=== PATIENT | female | born 1930 | race Caucasian/White ===

== ENCOUNTER 2017-04-17 17:00 | Inpatient (IN) | payer OTHER ==
[~2017-04-17] VITALS: Ht 157.5 cm; Wt 63.5 kg
[2017-04-17] MEDS ORDERED: IV NORMAL SALINE 500 ML BAG IV ONE (17:30)
[2017-04-17] MEDS ORDERED: IPRATROPIUM BROMIDE 0.5 MG/2.5 ML NEBU NEB ONE (17:30)
[2017-04-17] MEDS ORDERED: ALBUTEROL SULFATE 2.5 MG/ 0.5 ML NEBU NEB ONE (17:30)
[2017-04-17] MEDS ORDERED: HYDROCORTISONE SOD SUCCINATE 100 MG/2 ML VIAL IV ONE ×2 (17:30→18:15)
[2017-04-17 17:54] LABS: ABG BASE EXCESS 0.5 mmol/L; ABG HCO3 21.8 mmol/L; ABG PCO2 25.6 mmHg (35.0-45.0); ABG PH 7.548 (7.350-7.450); ABG PO2 128.4 mmHg (75.0-100.0); ABG SITE LEFT RADIAL; ABG TOTAL HEMOGLOBIN 11.9 G/dL (12.0-16.0); COHb 1.7 % (0.5-1.5); MetHb 0.2 % (0.0-1.5); O2Hb 97.5 % (94.0-97.0); VENT MODE RA
[2017-04-17] MEDS ORDERED: ASPI81TA31 PO (17:59)
[2017-04-17] MEDS ORDERED: MULT1TAB11 PO (17:59)
[2017-04-17] MEDS ORDERED: CALC-494 PO (17:59)
[2017-04-17] MEDS ORDERED: SENN-167 PO (17:59)
[2017-04-17] MEDS ORDERED: METO100T3 PO (17:59)
[2017-04-17] MEDS ORDERED: TRAM50TA2 PO (17:59)
[2017-04-17] MEDS ORDERED: AMIN30LI27 PO (17:59)
[2017-04-17] MEDS ORDERED: HYDR-3326 PO (17:59)
[2017-04-17] MEDS ORDERED: AMLO10TA2 PO (17:59)
[2017-04-17] MEDS ORDERED: DOCU250C14 PO (17:59)
[2017-04-17] MEDS ORDERED: SACC250C PO (17:59)
[2017-04-17] MEDS ORDERED: ACET325T53 PO (17:59)
[2017-04-17] MEDS ORDERED: CRAN425C6 PO (17:59)
[2017-04-17] MEDS ORDERED: HYDR100T27 PO (17:59)
[2017-04-17 18:12] LABS: BASOPHILS # (AUTO) 0.1 K/uL (0.0-8.0); BASOPHILS % (AUTO) 0.7 % (0.0-2.0); EOSINOPHILS # (AUTO) 0.3 K/uL (0.0-0.7); EOSINOPHILS % (AUTO) 2.3 % (0.0-7.0); HEMATOCRIT 34.5 % (31.2-41.9); HEMOGLOBIN 10.9 g/dL (10.9-14.3); LYMPHOCYTES # (AUTO) 3.3 K/uL (20.0-40.0); LYMPHOCYTES % (AUTO) 29.4 % (20.5-51.5); MEAN CORPUSCULAR HEMOGLOBIN 23.6 uug (24.7-32.8); MEAN CORPUSCULAR HGB CONC 32 g/dL (32.3-35.6); MEAN CORPUSCULAR VOLUME 74.7 fL (75.5-95.3); MONOCYTES # (AUTO) 0.9 K/uL (2.0-10.0); MONOCYTES % (AUTO) 7.7 % (0.0-11.0); NEUTROPHILS # (AUTO) 6.6 K/uL (1.8-8.9); NEUTROPHILS % (AUTO) 59.9 % (38.5-71.5); PLATELET COUNT (AUTO) 323 K/uL (179-408); RED BLOOD CELL COUNT(AUTO) 4.62 MIL/uL (3.63-4.92); WHITE BLOOD COUNT (AUTO) 11.1 K/uL (3.8-11.8)
[2017-04-17] MEDS ORDERED: IPRATROPIUM BROMIDE 0.5 MG/2.5 ML NEBU ONE (18:14)
[2017-04-17] MEDS ORDERED: ALBUTEROL SULFATE 2.5 MG/ 0.5 ML NEBU ONE (18:14)
[2017-04-17 18:18] LABS: CARBON DIOXIDE 27 mmol/L (21-32); CHLORIDE 102 mmol/L (98-107); CREATININE 1.8 mg/dL (0.6-1.3); GLUCOSE 109 mg/dL (74-106); POTASSIUM 4.6 mmol/L (3.5-5.1); UREA NITROGEN, BLOOD 39 mg/dL (7-18)
[2017-04-17 18:23] LABS: ALANINE AMINOTRANSFERASE 8 U/L (14-59); ALKALINE PHOSPHATASE 58 U/L (50-136); ASPARTATE AMINOTRANSFERASE 10 U/L (15-37); BILIRUBIN,TOTAL 0.3 mg/dL (0.2-1.0); TOTAL PROTEIN, SERUM 7.4 g/dL (6.4-8.2)
[2017-04-17 19:49] LABS: EOSINOPHILS % (MANUAL) 2 % (0-8); LYMPHOCYTES % (MANUAL) 32 % (20-40); MONOCYTES % (MANUAL) 8 % (2-10); NEUTROPHILS % (MANUAL) 58 % (42-75)
[2017-04-17 20:30] VITALS: BP 156/63
[2017-04-17] MEDS ORDERED: HYDROCODONE/APAP 5-325MG TABLET PO PRN (22:00)
[2017-04-17] MEDS ORDERED: ACETAMINOPHEN 325 MG TABLET PO PRN (22:00)
[2017-04-17] MEDS ORDERED: Z GUARD REMEDY PASTE 57 GM TUBE TOP PRN (22:00)
[2017-04-17] MEDS ORDERED: MAGNESIUM HYDROXIDE 30 ML LIQUID UDC PO PRN (22:00)
[2017-04-17] MEDS ORDERED: TRAMADOL HCL 50 MG TABLET PO PRN (22:00)
[2017-04-17] MEDS ORDERED: ONDANSETRON 4 MG/2 ML VIAL IV PRN (22:00)
[2017-04-17] MEDS ORDERED: ALBUTEROL SULFATE 1.25 MG/3 ML NEBU NEB PRN (22:00)
[2017-04-17] MEDS ORDERED: IPRATROPIUM BROMIDE 0.5 MG/2.5 ML NEBU NEB PRN (22:00)
[2017-04-17] MEDS ORDERED: ZOLPIDEM 5 MG TABLET PO PRN (22:00)
[2017-04-18 00:33] VITALS: BP 128/61
[2017-04-18 04:00] VITALS: BP 125/56
[2017-04-18 06:29] LABS: BASOPHILS % (AUTO) 0.3 % (0.0-2.0); EOSINOPHILS # (AUTO) 0.1 K/uL (0.0-0.7); EOSINOPHILS % (AUTO) 0.6 % (0.0-7.0); HEMATOCRIT 37.2 % (31.2-41.9); HEMOGLOBIN 11.8 g/dL (10.9-14.3); LYMPHOCYTES # (AUTO) 2.8 K/uL (20.0-40.0); LYMPHOCYTES % (AUTO) 27.8 % (20.5-51.5); MEAN CORPUSCULAR HEMOGLOBIN 23.8 uug (24.7-32.8); MEAN CORPUSCULAR HGB CONC 32 g/dL (32.3-35.6); MEAN CORPUSCULAR VOLUME 74.9 fL (75.5-95.3); MONOCYTES # (AUTO) 0.5 K/uL (2.0-10.0); MONOCYTES % (AUTO) 4.8 % (0.0-11.0); NEUTROPHILS # (AUTO) 6.7 K/uL (1.8-8.9); NEUTROPHILS % (AUTO) 66.5 % (38.5-71.5); PLATELET COUNT (AUTO) 288 K/uL (179-408); RED BLOOD CELL COUNT(AUTO) 4.96 MIL/uL (3.63-4.92); WHITE BLOOD COUNT (AUTO) 10.1 K/uL (3.8-11.8)
[2017-04-18 06:47] LABS: CARBON DIOXIDE 24 mmol/L (21-32); CHLORIDE 106 mmol/L (98-107); CHOLESTEROL 164 mg/dL (<200); CREATININE 1.6 mg/dL (0.6-1.3); GLUCOSE 103 mg/dL (74-106); HDL CHOLESTEROL 62 mg/dL (40-60); MAGNESIUM 2.7 mg/dL (1.8-2.4); PHOSPHOROUS 4.6 mg/dL (2.5-4.9); POTASSIUM 4.3 mmol/L (3.5-5.1); TRIGLYCERIDES 61 MG/DL (30-150); UREA NITROGEN, BLOOD 37 mg/dL (7-18)
[2017-04-18] MEDS ORDERED: CALCIUM CARBONATE 500 MG TAB.CHEW PO PRN (07:30)
[2017-04-18] MEDS: MULTIVIT, IRON, MIN NO. 8, FA TABLET PO SCH (08:23)
[2017-04-18] MEDS: ASPIRIN 81 MG TAB.CHEW PO SCH (08:23)
[2017-04-18] MEDS: SENNOSIDES 1 TABLET PO SCH ×2 (08:23→17:31)
[2017-04-18] MEDS: DOCUSATE SODIUM 250 MG CAPSULE PO SCH ×2 (08:24→17:32)
[2017-04-18] MEDS: ACIDOPHILUS/BULGARICUS CHEW TAB PO SCH ×2 (08:24→20:38)
[2017-04-18] MEDS: PROTEIN SUPPLEMENT (PROSTAT) 30 ML LIQUID PO SCH ×2 (08:33→17:32)
[2017-04-18] MEDS ORDERED: Medication Not On Formulary EA (Multivitamins W-Minerals (Multivitamin With Minerals) 1 PO SCH (09:00)
[2017-04-18] MEDS ORDERED: Medication Not On Formulary EA (Cranberry Extract (Cranberry) 425 MG) PO SCH (09:00)
[2017-04-18] MEDS: AMLODIPINE 10 MG TABLET PO SCH (09:00)
[2017-04-18] MEDS: hydrALAZINE HCL 50 MG TABLET PO SCH (09:00)
[2017-04-18] MEDS: METOPROLOL TARTRATE 100 MG TABLET PO SCH ×2 (09:00→20:39)
[2017-04-18] MEDS ORDERED: Medication Not On Formulary EA (Amino Acids/Protein Hydrolys (Pro-Stat Sugar Free Liquid PO SCH (09:00)
[2017-04-18] MEDS ORDERED: Medication Not On Formulary EA (Saccharomyces Boulardii (Florastor) 250 MG) PO SCH (09:00)
[2017-04-18 09:34] LABS: BAND % (MANUAL) 1 % (0-10); EOSINOPHILS % (MANUAL) 1 % (0-8); LYMPHOCYTES % (MANUAL) 34 % (20-40); MONOCYTES % (MANUAL) 2 % (2-10); NEUTROPHILS % (MANUAL) 62 % (42-75)
[2017-04-18 11:05] VITALS: BP 134/46
[2017-04-18 15:12] VITALS: BP 140/56
[2017-04-18 19:45] VITALS: BP 145/58
[2017-04-18] MEDS: ATORVASTATIN 20 MG TABLET PO SCH (20:38)
[2017-04-19 06:19] VITALS: BP 102/54
[2017-04-19 07:13] LABS: CARBON DIOXIDE 25 mmol/L (21-32); CHLORIDE 109 mmol/L (98-107); CREATININE 1.7 mg/dL (0.6-1.3); GLUCOSE 83 mg/dL (74-106); POTASSIUM 4.3 mmol/L (3.5-5.1); UREA NITROGEN, BLOOD 42 mg/dL (7-18)
[2017-04-19] MEDS: ACIDOPHILUS/BULGARICUS CHEW TAB PO SCH ×2 (08:29→20:53)
[2017-04-19] MEDS: ASPIRIN 81 MG TAB.CHEW PO SCH (08:29)
[2017-04-19] MEDS: MULTIVIT, IRON, MIN NO. 8, FA TABLET PO SCH (08:29)
[2017-04-19] MEDS: DOCUSATE SODIUM 250 MG CAPSULE PO SCH ×2 (08:29→16:33)
[2017-04-19] MEDS: SENNOSIDES 1 TABLET PO SCH ×2 (08:29→16:34)
[2017-04-19] MEDS: AMLODIPINE 10 MG TABLET PO SCH (08:32)
[2017-04-19] MEDS: hydrALAZINE HCL 50 MG TABLET PO SCH ×2 (08:33→08:35)
[2017-04-19] MEDS: PROTEIN SUPPLEMENT (PROSTAT) 30 ML LIQUID PO SCH ×2 (08:33→16:34)
[2017-04-19] MEDS: METOPROLOL TARTRATE 100 MG TABLET PO SCH ×2 (08:35→20:53)
[2017-04-19 11:13] VITALS: BP 123/49
[2017-04-19 15:13] VITALS: BP 153/60
[2017-04-19 18:58] VITALS: BP 128/49
[2017-04-19 20:00] VITALS: BP 105/54
[2017-04-19] MEDS: ATORVASTATIN 20 MG TABLET PO SCH (20:52)
[2017-04-20 05:16] VITALS: BP 128/45
[2017-04-20] MEDS: ACIDOPHILUS/BULGARICUS CHEW TAB PO SCH ×2 (08:16→21:13)
[2017-04-20] MEDS: DOCUSATE SODIUM 250 MG CAPSULE PO SCH ×2 (08:16→16:21)
[2017-04-20] MEDS: SENNOSIDES 1 TABLET PO SCH ×2 (08:16→16:21)
[2017-04-20] MEDS: AMLODIPINE 10 MG TABLET PO SCH (08:16)
[2017-04-20] MEDS: MULTIVIT, IRON, MIN NO. 8, FA TABLET PO SCH (08:16)
[2017-04-20] MEDS: PROTEIN SUPPLEMENT (PROSTAT) 30 ML LIQUID PO SCH ×2 (08:17→16:21)
[2017-04-20] MEDS: ASPIRIN 81 MG TAB.CHEW PO SCH (08:17)
[2017-04-20] MEDS: hydrALAZINE HCL 50 MG TABLET PO SCH (08:17)
[2017-04-20] MEDS: METOPROLOL TARTRATE 100 MG TABLET PO SCH ×2 (08:18→21:18)
[2017-04-20 11:51] VITALS: BP 120/42
[2017-04-20 15:45] VITALS: BP 127/49
[2017-04-20 19:40] VITALS: BP 133/50
[2017-04-20] MEDS: ATORVASTATIN 20 MG TABLET PO SCH (21:13)
[2017-04-21 04:00] VITALS: BP 134/52
[2017-04-21 06:28] LABS: BASOPHILS % (AUTO) 0.5 % (0.0-2.0); EOSINOPHILS # (AUTO) 0.2 K/uL (0.0-0.7); EOSINOPHILS % (AUTO) 1.7 % (0.0-7.0); HEMATOCRIT 35.7 % (31.2-41.9); HEMOGLOBIN 11.4 g/dL (10.9-14.3); LYMPHOCYTES # (AUTO) 2.9 K/uL (20.0-40.0); LYMPHOCYTES % (AUTO) 28.5 % (20.5-51.5); MEAN CORPUSCULAR HEMOGLOBIN 23.6 uug (24.7-32.8); MEAN CORPUSCULAR HGB CONC 32 g/dL (32.3-35.6); MEAN CORPUSCULAR VOLUME 74.1 fL (75.5-95.3); MONOCYTES # (AUTO) 0.8 K/uL (2.0-10.0); MONOCYTES % (AUTO) 7.5 % (0.0-11.0); NEUTROPHILS # (AUTO) 6.3 K/uL (1.8-8.9); NEUTROPHILS % (AUTO) 61.8 % (38.5-71.5); PLATELET COUNT (AUTO) 289 K/uL (179-408); RED BLOOD CELL COUNT(AUTO) 4.82 MIL/uL (3.63-4.92); WHITE BLOOD COUNT (AUTO) 10.2 K/uL (3.8-11.8)
[2017-04-21 06:41] LABS: ALANINE AMINOTRANSFERASE 9 U/L (14-59); ALKALINE PHOSPHATASE 57 U/L (50-136); ASPARTATE AMINOTRANSFERASE 11 U/L (15-37); BILIRUBIN,TOTAL 0.3 mg/dL (0.2-1.0); CARBON DIOXIDE 28 mmol/L (21-32); CHLORIDE 106 mmol/L (98-107); CREATININE 1.4 mg/dL (0.6-1.3); GLUCOSE 84 mg/dL (74-106); MAGNESIUM 2.3 mg/dL (1.8-2.4); PHOSPHOROUS 3.2 mg/dL (2.5-4.9); POTASSIUM 4.2 mmol/L (3.5-5.1); TOTAL PROTEIN, SERUM 6.9 g/dL (6.4-8.2); UREA NITROGEN, BLOOD 36 mg/dL (7-18)
[2017-04-21 08:49] LABS: BAND % (MANUAL) 2 % (0-10); EOSINOPHILS % (MANUAL) 2 % (0-8); LYMPHOCYTES % (MANUAL) 32 % (20-40); MONOCYTES % (MANUAL) 8 % (2-10); NEUTROPHILS % (MANUAL) 56 % (42-75)
[2017-04-21] MEDS: AMLODIPINE 10 MG TABLET PO SCH (10:14)
[2017-04-21] MEDS: ASPIRIN 81 MG TAB.CHEW PO SCH (10:14)
[2017-04-21] MEDS: hydrALAZINE HCL 50 MG TABLET PO SCH (10:14)
[2017-04-21] MEDS: MULTIVIT, IRON, MIN NO. 8, FA TABLET PO SCH (10:16)
[2017-04-21] MEDS: METOPROLOL TARTRATE 100 MG TABLET PO SCH (10:16)
[2017-04-21] MEDS: DOCUSATE SODIUM 250 MG CAPSULE PO SCH (10:16)
[2017-04-21] MEDS: SENNOSIDES 1 TABLET PO SCH (10:16)
[2017-04-21] MEDS: ACIDOPHILUS/BULGARICUS CHEW TAB PO SCH (10:25)
[2017-04-21 10:49] VITALS: BP 114/52
[2017-04-21 11:10] VITALS: BP 141/45
== END 2017-04-21 12:15 | DRG 917 ==
LOC: ER 17:01 → TELE 21:19 → MED 04-18 10:00
PROVIDERS: ADMIT Nurse Practitioner Acute Care; ATTEND Internal Medicine
DX: T59.811A Toxic effect of smoke, accidental (unintentional), initial encounter (principal); N17.0 Acute kidney failure with tubular necrosis; E87.3 Alkalosis; J70.5 Respiratory conditions due to smoke inhalation; Y92.129 Unspecified place in nursing home as the place of occurrence of the external cause; F03.90 Unspecified dementia, unspecified severity, without behavioral disturbance, psychotic disturbance, mood disturbance, and anxiety; Z79.899 Other long term (current) drug therapy; Z79.82 Long term (current) use of aspirin; I12.9 Hypertensive chronic kidney disease with stage 1 through stage 4 chronic kidney disease, or unspecified chronic kidney disease; N18.9 Chronic kidney disease, unspecified; E78.5 Hyperlipidemia, unspecified; Z87.440 Personal history of urinary (tract) infections; J44.9 Chronic obstructive pulmonary disease, unspecified; X08.8XXA Exposure to other specified smoke, fire and flames, initial encounter
CPT/HCPCS: 36415; 36600; 71010; 83735; 84100; 85025; 93005; A4663; J1720; J3590; J7030; J7040